=== PATIENT | male | born 1945 | race Caucasian/White ===

== ENCOUNTER 2022-03-23 13:10 | Emergency (ER) | payer MEDICARE, SELFPAY ==
--- NOTE | ~2022-03-23 | MR_ITS ---
EXAMINATION: MR head/brain wo con CLINICAL INFORMATION: Right-sided weakness COMPARISON: Same day CTA head and neck TECHNIQUE: Limited sequence MRI of the brain was performed at 1.5 Jocelyn including axial diffusion-weighted imaging and axial T2 FLAIR. FINDINGS: Reduced diffusion in the left MCA territory involving the inferolateral left frontal lobe and frontal operculum, left anterior temporal lobe and temporal operculum, insula, and left basal ganglia. FLAIR imaging is somewhat suboptimal but there appears to be some areas of corresponding FLAIR signal abnormality particularly in the insula, frontal lobe, and basal ganglia with possible areas of mismatch elsewhere. No mass effect or midline shift. No extra-axial collection. No evidence of intracranial hemorrhage. Mild generalized cerebral volume loss with commensurate sulcal and ventricular prominence. Chronic encephalomalacia in the right frontal lobe and smaller regions of encephalomalacia involving the right right occipital, right posterior temporal, left parietal, and left frontal lobes. Mild microvascular ischemic white matter signal changes. MR/MR head/brain wo con IMPRESSION: 1. Left MCA territory acute infarct involving the left inferolateral frontal and anterior temporal lobes, left frontal and temporal opercula, left insula, and left basal ganglia. Suboptimal evaluation for FLAIR mismatch with possible areas of mismatch involving the left temporal lobe. 2. Multifocal chronic encephalomalacia in the right cerebral hemisphere as well as the left parietal and frontal lobes. Above impression was communicated to Dr.Louis Bhatt on 03/23/2022 at 2:42 PM
--- NOTE | ~2022-03-23 | CT_ITS ---
EXAMINATION: CT ANGIOGRAM HEAD CT ANGIOGRAM NECK CLINICAL INFORMATION: Reason for Exam right weakness COMPARISON: Earlier same day noncontrast head CT TECHNIQUE: Initial noncontrast barkeep imaging of the head and neck was performed. Comparison is made with noncontrast head CT from earlier today. Test bolus sequences followed by intravenous administration 100 mL of Omnipaque 350. Helical imaging was performed in the axial plane from the aortic arch to the skull vertex. Delayed postcontrast imaging of the head was also performed. The data was processed at the dairy manufacturing technologist's workstation for generation of MIP sequences. Angled MIPs and volume rendered reformatted images were also generated at an offline 3D workstation. Stenoses are assessed in accordance with NASCET criteria unless otherwise indicated. DLP: 721 mGy-cm This CT examination was performed using dose optimization techniques as appropriate, variously including the following: *Automated exposure control. *Adjustment of mA and/or kV according to patient size (this includes techniques or standardized protocols for targeted exams where dose is matched to indication/reason for exam; i.e. extremities or head). *Use of iterative reconstruction technique. FINDINGS: CT head: There is subtle parenchymal hypodensity and loss of resendez-white matter differentiation involving the inferolateral left frontal lobe and frontal and temporal operculum, likely reflecting evolving acute ischemia. Chronic encephalomalacia in the right frontal lobe and small regions of encephalomalacia involving the posterior right temporal and right occipital lobes. CT Neck: The thyroid gland and remaining cervical soft tissues are within normal limits. Multilevel cervical spondylosis. CT Upper Chest: The visualized lung apices and upper mediastinum are within normal limits. Neck CTA: Aortic Arch: Normal contour and caliber. Two vessel branching pattern of the arch with left common carotid artery arising from the brachiocephalic trunk. Great Vessel Origins: No significant stenosis of the branch origins. Right Common Carotid Artery: No focal stenosis or occlusion. Cervical Right Internal Carotid Artery: Calcific atherosclerotic disease of the carotid bulb and proximal internal carotid artery causing less than 50% stenosis. Left Common and internal Carotid Artery: Absent contrast opacification just distal to the vessel origin. Cervical Right Vertebral Artery: No focal stenosis or occlusion. Cervical Left Vertebral Artery: No focal stenosis or occlusion. Brain CTA: Intracranial Internal Carotid Arteries: Mild atherosclerotic calcification of the right internal carotid artery without flow-limiting stenosis. There is absent contrast opacification of the left internal carotid artery until the cavernous segment where there is peripheral contrast filling and large central filling defect likely representing thrombus which extends into the supraclinoid ICA and with thinner component extending into the carotid terminus. There is preserved contrast filling of the left posterior communicating artery. Right Anterior Cerebral Artery: The A1 segment is diminutive. Normal opacification of the distal CATRACHITA segments. Left Anterior Cerebral Artery: Thin filling defect in the proximal A1 segments compatible with thrombus. Normal opacification of the distal CATRACHITA segments. Anterior Communicating Artery: Normal. Right Middle Cerebral Artery: Normal M1 segment of the MCA without focal stenosis or occlusion. Normal arborization of the distal segments. Left Middle Cerebral Artery: Thrombus of the left carotid terminus extends into the left M1 segment which is only partially occlusive proximally and occlusive involving the mid to distal vessel extending into and likely involving the proximal M2 segments. There is some distal reconstitution of the left MCA complex likely via collateralized flow. Right Vertebral Artery: Normal V4 segment. Left Vertebral Artery: Normal V4 segment. Basilar Artery: Normal without focal stenosis or occlusion. Normal appearance of the proximal superior cerebellar arteries. The proximal basilar artery is fenestrated. Right Posterior Cerebral Artery: Normal P1 segment. Normal opacification of the distal ADMINISTRATION DEAN segments. Left Posterior Cerebral Artery: Normal P1 segment. Normal opacification of the distal ADMINISTRATION DEAN segments. Normal opacification of the superior sagittal, straight, transverse, and sigmoid sinuses. CT/CT angio head neck stroke IMPRESSION: 1. Absent contrast opacification of the cervical and proximal intracranial left internal carotid artery with large thrombus involving the cavernous and supraclinoid left ICA, nonocclusive thrombus of the carotid terminus extending into the proximal A1 and M1 segments, and occlusive thrombus of the mid to distal left M1 segment and M2 branches. 2. Suspected early loss of resendez-white matter differentiation involving the left inferolateral frontal lobe and frontal and temporal opercula. 3. Multifocal chronic encephalomalacia in the right cerebral hemisphere, most prominently involving the right frontal lobe. Above impression was discussed with Dr. Star Bhatt on 03/23/2022 at 1:46 PM.
--- NOTE | ~2022-03-23 | XR_ITS ---
EXAMINATION: XR CHEST CLINICAL INFORMATION: Stroke, large vessel occlusion. COMPARISON: None TECHNIQUE: Portable upright AP view of the chest was obtained. FINDINGS: There is linear scar versus disc atelectasis left lower zone. The remainder of the left lung is clear. There is vague oval opacity lower right perihilar region around 1.8 cm. Remainder of the right lung is clear. Heart size normal. No vascular congestion or effusion. The mediastinal contours and visualized bony structures are unremarkable. XR/XR chest 1V IMPRESSION: -Vague oval opacity versus mass lower right perihilar region 1.8 cm. -Linear scar versus disc atelectasis left lower zone. -Heart size normal. No vascular congestion or effusion.
--- NOTE | ~2022-03-23 | CT_ITS ---
EXAMINATION: CT HEAD WITHOUT CONTRAST CLINICAL INFORMATION: Stroke with extensive right-sided weakness. COMPARISON: None TECHNIQUE: Contiguous axial imaging was performed from the skull base to vertex without intravenous administration of contrast. Axial images are provided. This CT examination was performed using dose optimization techniques as appropriate, variously including the following: *Automated exposure control *Adjustment of mA and/or kV according to patient size (this includes techniques or standardized protocols for targeted exams where dose is matched to indication/reason for exam; i.e. extremities or head) *Use of iterative reconstruction technique DLP: 720 mGy-cm FINDINGS: There is no intracranial hemorrhage, hematoma, or extra-axial fluid collection. The ventricles are normal in size and contour. There is no hydrocephalus or midline shift. There is old appearing infarct right frontal lobe with associated encephalomalacia just anterior to right sylvian fissure. There is subtle decreased attenuation around the anterior left sylvian fissure which may represent early infarct. No visible mass lesion. There is increased attenuation left M1 and M2 middle cerebral artery suspicious for acute large vessel thrombus. Recommend correlation with CTA. The calvarium is intact. No pneumocephalus or orbital emphysema. No mild mucosal thickening maxillary and ethmoid sinuses. No air-fluid levels. Middle ears and mastoids clear. Results called and discussed with Dr. Bhatt in the emergency department at [address]/CT head/brain wo IV con IMPRESSION: -No intracranial hemorrhage or hematoma. No hydrocephalus or midline shift. -Moderate right old appearing frontal lobe infarct with encephalomalacia. -Subtle decreased attenuation around the anterior left sylvian fissure suspicious for early infarct. -Increased attenuation left middle cerebral artery which may represent acute large vessel thrombus. Recommend correlation with CT angiography.
--- NOTE | 2022-03-23 13:24 | ECG_ITS ---
Test Reason : STROKE Blood Pressure : / mmHG Vent. Rate : 074 BPM Atrial Rate : 074 BPM P-R Int : 224 ms QRS Dur : 086 ms QT Int : 432 ms P-R-T Axes : 040 004 010 degrees QTc Int : 479 ms Sinus rhythm with 1st degree A-V block Otherwise normal ECG No previous ECGs available Referred By: Star Bhatt Electronically Signed By:RICCI GARCIA
[2022-03-23 13:25] VITALS: BP 129/74; PULSE 57; RESP 18; O2SAT 96; BMI 25.8
--- NOTE | 2022-03-23 13:25 | ED.WEAKNESS ---
HPI - Weakness General Chief complaint: Stroke Stated complaint: Stroke? right sided deviation Time Seen by Provider: 03/23/22 13:22 Source: EMS Limitations: altered mental status History of Present Illness HPI Narrative: Patient brought in by ambulance with a chief complaint of apparent stroke. Patient last known well time of 08:00 o'clock when he left his house to go run errands. When he did come home his white could get a hold of him so went to look for him. She found him parked in a car at a gas station. Unclear how long he had been there. He has a profound right hemiparesis. He is aphasic. Unable to answer questions. He has a history of atrial fibrillation but does not take his anticoagulation per his . Related Data Allergies Allergy/AdvReac Type Severity Reaction Status Date / Time No Known Allergies Allergy Unverified 03/17/20 16:01 Review of Systems Review of Systems: Unable to perform review of systems [facility] Past Medical History Medical History (Updated 03/23/22 @ 14:26 by Star Bhatt MD) A-fib Physical Exam Vital Signs: Vital Signs: Last Vital Signs Temp 97.7 F 03/23/22 13:49 Pulse 57 03/23/22 13:25 Resp 18 03/23/22 13:25 BP 129/74 03/23/22 13:25 Pulse Ox 96 03/23/22 13:25 O2 Del Method 03/23/22 13:25 BMI result Body Mass Index 25.8 Const: Other: Patient is awake but does not follow commands Eyes: Other: Left gaze deviation. Dysconjugate in that right eye is more deviated than left Resp: Other: No respiratory distress Cardio: Other: Irregularly irregular GI: Other: Soft and nondistended Skin: Other: Warm and dry without rash Neuro: Other: Profound right hemiparesis. Profound aphasia. Profound right-sided facial droop including forehead. Fixed gaze deviation to the left. NIH Stroke Scale Internal: Initial- Upon Arrival Time: 13:35 Level of Consciousness: Alert Level of Consciousness Questions: Answers neither question correctly Level of Consciousness Commands: Performs neither task correctly Best Gaze: Forced deviation Visual: Bilateral hemianopia Facial Palsy: Complete paralysis Motor Arm (Right): No effort against gravity Motor Arm (Left): Some effort against gravity Motor Leg (Right): No effort against gravity Motor Leg (Left): Some effort against gravity Limb Ataxia: Present in two limbs Sensory: Severe to total sensory loss Best Language: Severe aphasia Dysarthia: Severe dysarthria Extinction and Inattention: Profound jesusita-inattention or extinction to more than one modality Score: 32 Course Course Course Narrative: Patient with devastating stroke. Last known well time 05:00 hours and 40 minutes prior to arrival. Plain CT shows old stroke right frontal lobe. CT angiography shows extremely large clot from carotid all the way up into internal cerebral artery and middle cerebral artery. Awaiting call back from [facility]. In the meantime consult to Dr. Dewitt. Recommends MRI while waiting. Orders placed. 14:26. Discussed case with Dr. Chino who agrees to accept patient in transfer to [facility]. Will transfer MATTHEW MDM - Weakness Lab Data Result diagrams: 03/23/22 13:56 03/23/22 13:56 Labs: Lab Results 03/23/22 03/23/22 03/23/22 Range/Units 13:49 13:56 13:56 WBC 5.4 (4.8-10.8) X10*3/uL RBC 4.11 L (4.60-5.80) X10*6/uL Hgb 13.5 L (14.0-18.0) g/dl Hct 39.4 L (42.0-52.0) % MCV 95.9 (80.0-98.0) fL MCH 32.8 (27.0-33.0) pg MCHC 34.3 (31.0-36.0) g/dl RDW 13.1 (11.0-16.0) % Plt Count 96 L (160-400) X10*3/uL MPV 10.8 (9.4-12.4) fL Immature Gran % (Auto) 0.2 (0.0-0.4) % Neut % (Auto) 71.3 (45-73) % Lymph % (Auto) 11.5 L (20-40) % [place] % (Auto) 16.2 H (2-11) % Eos % (Auto) 0.4 (0-4) % Baso % (Auto) 0.4 (0-2) % Lymph # (Auto) 0.6 L (1.2-4.9) X10*3/uL [place] # (Auto) 0.9 (0.1-1.2) X10*3/uL Eos # (Auto) 0.0 (0.0-0.4) X10*3/uL Baso # (Auto) 0.0 (0.0-0.2) X10*3/uL Abs Immat Gran (auto) 0.01 (0.00-0.03) X10*3/uL Absolute Neuts (auto) 3.8 (2.0-8.3) x10*3/uL Absolute Nucleated RBC 0.000 (0.0-0.012) X10*3/uL Nucleated RBC % (auto) 0.0 (0.0-0.2) /100WBC D-Dimer High Sensitivty NG/ML Sodium 134 L (135-145) mmol/L Potassium 4.7 (3.3-5.1) mmol/L Chloride 107 (96-108) mmol/L Carbon Dioxide 14 L (22-29) mmol/L Anion Gap 18 (12-20) BUN 12 (9-16) mg/dL Creatinine 0.90 (0.5-1.4) mg/dL Estim Creat Clear Calc 74.3 Estimated GFR > 60 POC Glucose 107 (60-115) mg/dL Random Glucose 120 H (60-115) mg/dL Calcium 8.5 (8.4-10.2) mg/dL Total Bilirubin 1.2 H (0.0-1.0) mg/dL AST 128 H (5-37) U/L ALT 111 H (0-40) U/L Alkaline Phosphatase 75 (39-117) U/L Total Protein 7.2 (6.5-8.0) g/dL Albumin 3.4 L (3.5-5.0) g/dL 03/23/22 Range/Units 13:56 WBC (4.8-10.8) X10*3/uL RBC (4.60-5.80) X10*6/uL Hgb (14.0-18.0) g/dl Hct (42.0-52.0) % MCV (80.0-98.0) fL MCH (27.0-33.0) pg MCHC (31.0-36.0) g/dl RDW (11.0-16.0) % Plt Count (160-400) X10*3/uL MPV (9.4-12.4) fL Immature Gran % (Auto) (0.0-0.4) % Neut % (Auto) (45-73) % Lymph % (Auto) (20-40) % [place] % (Auto) (2-11) % Eos % (Auto) (0-4) % Baso % (Auto) (0-2) % Lymph # (Auto) (1.2-4.9) X10*3/uL [place] # (Auto) (0.1-1.2) X10*3/uL Eos # (Auto) (0.0-0.4) X10*3/uL Baso # (Auto) (0.0-0.2) X10*3/uL Abs Immat Gran (auto) (0.00-0.03) X10*3/uL Absolute Neuts (auto) (2.0-8.3) x10*3/uL Absolute Nucleated RBC (0.0-0.012) X10*3/uL Nucleated RBC % (auto) (0.0-0.2) /100WBC D-Dimer High Sensitivty 5725 NG/ML Sodium (135-145) mmol/L Potassium (3.3-5.1) mmol/L Chloride (96-108) mmol/L Carbon Dioxide (22-29) mmol/L Anion Gap (12-20) BUN (9-16) mg/dL Creatinine (0.5-1.4) mg/dL Estim Creat Clear Calc Estimated GFR POC Glucose (60-115) mg/dL Random Glucose (60-115) mg/dL Calcium (8.4-10.2) mg/dL Total Bilirubin (0.0-1.0) mg/dL AST (5-37) U/L ALT (0-40) U/L Alkaline Phosphatase (39-117) U/L Total Protein (6.5-8.0) g/dL Albumin (3.5-5.0) g/dL Critical Care Time Critical Care Time Critical Care Time: Yes Total Critical Care Time: 120 Attestation: Critical care time for devastating stroke. All critical care time outside of separately billable procedures Discharge Plan Discharge Clinical Impression: Cerebrovascular accident Patient Disposition: [facility]
[2022-03-23] MEDS: iohexoL 350 MG/ML 100 ML INFUS..BTL IV (13:40)
[2022-03-23 13:49] VITALS: TEMP 36.5
[2022-03-23 14:01] LABS: MANUAL DIFF FLAG NO
[2022-03-23 14:06] LABS: Basophils Percent Auto 0.4 % (0-2); Eosinophils Percent Auto 0.4 % (0-4); Hematocrit 39.4 % (42.0-52.0); Hemoglobin 13.5 g/dl (14.0-18.0); Imm Gran Abs Auto 0.01 X10*3/uL (0.00-0.03); Imm Gran Pct Auto 0.2 % (0.0-0.4); Lymphocytes Absolute Auto 0.6 X10*3/uL (1.2-4.9); Lymphocytes Percent Auto 11.5 % (20-40); Mean Corpuscular HGB Conc 34.3 g/dl (31.0-36.0); Mean Corpuscular Hemoglobin 32.8 pg (27.0-33.0); Mean Corpuscular Volume 95.9 fL (80.0-98.0); Monocytes Absolute Auto 0.9 X10*3/uL (0.1-1.2); Monocytes Percent Auto 16.2 % (2-11); Neutrophils Absolute Auto 3.8 x10*3/uL (2.0-8.3); Neutrophils Percent Auto 71.3 % (45-73); Red Blood Count 4.11 X10*6/uL (4.60-5.80); Red Cell Distribution Width 13.1 % (11.0-16.0); White Blood Count 5.4 X10*3/uL (4.8-10.8)
[2022-03-23 14:13] LABS: Glucose, Whole Blood 107 mg/dL (60-115)
[2022-03-23 14:17] LABS: D Dimer High Sensitivity 5725 NG/ML
--- NOTE | 2022-03-23 14:17 | PC.NURSE ---
pt to mri with joanie leung at this time. hold or fail on swallow screen at this time.
[2022-03-23 14:22] LABS: Alanine Aminotransferase 111 U/L (0-40); Albumin Level 3.4 g/dL (3.5-5.0); Alkaline Phosphatase 75 U/L (39-117); Anion Gap 18 (12-20); Aspartate Amino Transferase 128 U/L (5-37); Bilirubin Total 1.2 mg/dL (0.0-1.0); Blood Urea Nitrogen 12 mg/dL (9-16); Calcium 8.5 mg/dL (8.4-10.2); Carbon Dioxide 14 mmol/L (22-29); Chloride 107 mmol/L (96-108); Creatinine Clr Calc Pharmacy 74.3; Estimated Glomerular Filt Rate > 60; Glucose Random 120 mg/dL (60-115); Potassium 4.7 mmol/L (3.3-5.1); Sodium 134 mmol/L (135-145); Total Protein 7.2 g/dL (6.5-8.0)
[2022-03-23 14:23] LABS: Mean Platelet Volume 10.8 fL (9.4-12.4)
[2022-03-23 14:24] LABS: Platelet Count 96 X10*3/uL (160-400)
--- NOTE | 2022-03-23 14:26 | PC.NURSE ---
call for report at this time to [facility]
[2022-03-23 14:40] LABS: COVID-19 Test Negative (Negative); IDNOW Serial# 16C4AD1C
--- NOTE | 2022-03-23 15:06 | MHC.STROKE ---
Addendum entered by Raven Christy RN 03/23/22 15:14: PATIENT DEPARTED AT 1455. Original Note: 1307 EMS PRE-NOTIFIED STROKE ALERT, LEFT GAZE, RIGHT HEMIPARESIS APHASIA, DYSPHASIA, NEGLECT. ARRIVED AT 13:10. STAT CT HEAD, THEN CTA H/N. LKW 0800 WHEN HE LEFT THE HOUSE TO DO ERRANDS. THE WENT LOOKING FOR HIM AND FOUND HIM IN THE [employer] UNABLE TO MOVE OR SPEAK AND CALLED 911. CTA REVEALED A LEFT CAROTID AND MCA OCCLUSION. DR. SHELBY ALSO RECOMMENDED A MRI TO SEE IF THERE WAS A MISMATCH TO DETERMINE TPA ELIGIBILITY, IN THE MEANTIME [facility] ACCEPTED THE PATIENT FOR POSSIBLE THROMBECTOMY AND EMS ARRIVED FOR TRANSFER. NO TPA GIVEN DUE TO INABILITY TO CONFIRM IF PATIENT WAS IN THE 4.5 HOUR WINDOW. USING LKW AT 0800. NO EYE WITNESS OR CONFIRMATION. NPO AND FAILED SWALLOW SCREEN. WAS HERE AND UPDATED THE ENTIRE TIME, SHE EVEN ACCOMPANIED PATIENT TO MRI. SEE DR FUNG'S NOTE.
== END 2022-03-23 15:04 | disposition short-term general hospital (02) ==
PROVIDERS: Emergency Provider Emergency Medicine; PCP Internal Medicine
DX: I63.239 Cerebral infarction due to unspecified occlusion or stenosis of unspecified carotid artery (principal); I63.519 Cerebral infarction due to unspecified occlusion or stenosis of unspecified middle cerebral artery; R47.01 Aphasia; R47.1 Dysarthria and anarthria; G81.91 Hemiplegia, unspecified affecting right dominant side; R29.810 Facial weakness; H53.47 Heteronymous bilateral field defects; R29.732 NIHSS score 32; I48.91 Unspecified atrial fibrillation; Z91.14 Patient's other noncompliance with medication regimen; Z20.822 Contact with and (suspected) exposure to COVID-19
CPT/HCPCS: 36415; 70450; 70496; 70498; 70551; 71045; 80053; 82947; 84484; 85025; 85379; 87635; 93005; 99285; Q9967